=== PATIENT | male | born 1980 | race Two or more races ===

== ENCOUNTER 2017-09-21 11:47 | Emergency (ER) | payer OTHER | END 2017-09-21 13:05 | disposition home or self-care (01) | LOC: ER 11:47 | DX: S46.812A Strain of other muscles, fascia and tendons at shoulder and upper arm level, left arm, initial encounter (principal); F12.10 Cannabis abuse, uncomplicated; F17.210 Nicotine dependence, cigarettes, uncomplicated; X50.9XXA Other and unspecified overexertion or strenuous movements or postures, initial encounter; Y93.89 Activity, other specified; Y99.8 Other external cause status; Y92.89 Other specified places as the place of occurrence of the external cause | CPT/HCPCS: 73000; 73030; 99284 ==

== ENCOUNTER 2019-03-01 10:43 | Emergency (ER) | payer BC, OTHER ==
[~2019-03-01] VITALS: Ht 167.6 cm; Wt 85.7 kg
[~2019-03-01 10:43] MED LIST: CYCL10TA2 PO; DOXY100C2 PO; METH4TAB2 PO; NAPR500T8 PO
[2019-03-01] MEDS ORDERED: KETOROLAC 30 MG/ML VIAL. IV ONE (11:00)
[2019-03-01 11:22] LABS: BASO # 0.1 x10^3/uL (0.0-0.2); BASO % 1 % (0-3); EOS # 0.4 x10^3/uL (0.0-0.7); EOS % 6 % (0-3); HEMATOCRIT 46.9 % (39.0-53.0); HEMOGLOBIN 16.5 g/dL (13.0-17.5); LYMPH # 3.2 x10^3/uL (1.0-4.8); LYMPH % 40 % (24-48); MEAN CORPUSCULAR HEMOGLOBIN 32 pg (25-35); MEAN CORPUSCULAR HGB CONC 35 g/dL (31-37); MEAN CORPUSCULAR VOLUME 91 fL (79-100); MONO # 0.4 x10^3/uL (0.0-1.1); MONO % 5 % (0-9); NEUT # 3.9 x10^3/uL (1.8-7.7); NEUT % 48 % (31-73); PLATELET COUNT 276 x10^3/uL (140-400); RED BLOOD COUNT 5.17 x10^6/uL (4.30-5.70); RED CELL DISTRIBUTION WIDTH 13.4 % (11.5-14.5)
--- NOTE | 2019-03-01 11:23 | EKG ---
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
[2019-03-01 11:27] LABS: CALCIUM 9.8 mg/dL (8.5-10.1); GFR 83.2; POTASSIUM 4.2 mmol/L (3.5-5.1)
[2019-03-01 11:33] LABS: ALBUMIN 4.5 g/dL (3.4-5.0); ALBUMIN/GLOBULIN RATIO 1.2 (1.0-1.7); TOTAL BILIRUBIN 0.9 mg/dL (0.2-1.0); TOTAL PROTEIN 8.2 g/dL (6.4-8.2)
[2019-03-01 11:37] LABS: PROTHROMBIN TIME PATIENT 12.6 SEC (11.7-14.0)
[2019-03-01 11:41] LABS: BARBITURATES NEG (NEG); BENZODIAZEPINES NEG (NEG); CANNABINOIDS POS (NEG); COCAINE NEG (NEG); METHADONE NEG (NEG); OPIATES NEG (NEG); PHENCYCLIDINE NEG (NEG)
[2019-03-01 11:42] LABS: AMPHETAMINE/METHAMPHETAMINE NEG (NEG)
[2019-03-01 11:54] VITALS: BP 122/88
[2019-03-01] MEDS ORDERED: NAPR-683 PO (12:03)
--- NOTE | 2019-03-01 12:03 | PHYS DOC ---
Past Medical History Past Medical History: No Pertinent History Past Surgical History: No Surgical History Additional Past Surgical Histo: on head in distant past Smoking: Cigarettes, 1 Pack Per Day Alcohol Use: Occasionally Drug Use: Marijuana Adult General Chief Complaint Chief Complaint: CHEST WALL PAIN HPI HPI Patient is a 38 year old male who presents with complaining of chest pain. Patient complaining of left upper chest pain since yesterday as a constant squeezing pain without radiation. Patient denies shortness of breath, dizziness, palpitation, nausea and vomiting, fever and chills, cough. Patient states the pain getting worse with movement. Patient rated his pain 8/10 and states he took Xanax last night belonged to somebody else without change of his pain. Patient states he had history of the same pain previously and diagnosed with muscle pain. Review of Systems Review of Systems Constitutional: Denies fever or chills [] Eyes: Denies change in visual acuity, redness, or eye pain [] HENT: Denies nasal congestion or sore throat [] Respiratory: Denies cough or shortness of breath [] Cardiovascular: No additional information not addressed in HPI [] GI: Denies abdominal pain, nausea, vomiting, bloody stools or diarrhea [] : Denies dysuria or hematuria [] Musculoskeletal: Denies back pain or joint pain [] Integument: Denies rash or skin lesions [] Neurologic: Denies headache, focal weakness or sensory changes [] Endocrine: Denies polyuria or polydipsia [] All other systems were reviewed and found to be within normal limits, except as documented in this note. Current Medications Current Medications Current Medications Medications (Trade) Dose Ordered Sig/[facility] Start Time Stop Time Status Last Admin Dose Admin Ketorolac Tromethamine (Toradol 30mg Vial) 30 mg 1X ONCE 03/01/19 11:00 03/01/19 11:07 DC 03/01/19 11:20 30 MG Allergies Allergies Allergies Coded Allergies Type Severity Reaction Last Updated Verified No Known Drug Allergies 07/01/16 No Physical Exam Physical Exam Constitutional: Well developed, well nourished, mild distress, non-toxic appearance. [] HENT: Normocephalic, atraumatic. Eyes: PERRLA, EOMI, conjunctiva normal, no discharge. [] Neck: Normal range of motion, no tenderness, supple, no stridor. [] Cardiovascular:Heart rate regular rhythm, no murmur [] Lungs & Thorax: Bilateral breath sounds clear to auscultation, reproducible left upper chest pain [] Abdomen: Bowel sounds normal, soft, no tenderness, no masses, no pulsatile masses. [] Skin: Warm, dry, no erythema, no rash. [] Back: No tenderness, no CVA tenderness. [] Extremities: No tenderness, no cyanosis, no clubbing, ROM intact, no edema. [] Neurologic: Alert and oriented X 3, no focal deficits noted. [] Psychologic: Affect normal, judgement normal, mood normal. [] Current Patient Data Vital Signs Vital Signs Date Time Temp Pulse Resp B/P (MAP) Pulse Ox O2 Delivery O2 Flow Rate FiO2 03/01/19 10:48 98.0 55 16 148/99 (115) 98 Room Air 98.0 Lab Values Laboratory Tests Test 03/01/19 11:03 03/01/19 11:20 White Blood Count 8.0 x10^3/uL (4.0-11.0) Red Blood Count 5.17 x10^6/uL (4.30-5.70) Hemoglobin 16.5 g/dL (13.0-17.5) Hematocrit 46.9 % (39.0-53.0) Mean Corpuscular Volume 91 fL (79-100) Mean Corpuscular Hemoglobin 32 pg (25-35) Mean Corpuscular Hemoglobin Concent 35 g/dL (31-37) Red Cell Distribution Width 13.4 % (11.5-14.5) Platelet Count 276 x10^3/uL (140-400) Neutrophils (%) (Auto) 48 % (31-73) Lymphocytes (%) (Auto) 40 % (24-48) Monocytes (%) (Auto) 5 % (0-9) Eosinophils (%) (Auto) 6 % (0-3) H Basophils (%) (Auto) 1 % (0-3) Neutrophils # (Auto) 3.9 x10^3/uL (1.8-7.7) Lymphocytes # (Auto) 3.2 x10^3/uL (1.0-4.8) Monocytes # (Auto) 0.4 x10^3/uL (0.0-1.1) Eosinophils # (Auto) 0.4 x10^3/uL (0.0-0.7) Basophils # (Auto) 0.1 x10^3/uL (0.0-0.2) Prothrombin Time 12.6 SEC (11.7-14.0) Prothrombin Time INR 1.0 (0.8-1.1) Sodium Level 140 mmol/L (136-145) Potassium Level 4.2 mmol/L (3.5-5.1) Chloride Level 103 mmol/L (98-107) Carbon Dioxide Level 27 mmol/L (21-32) Anion Gap 10 (6-14) Blood Urea Nitrogen 17 mg/dL (8-26) Creatinine 1.0 mg/dL (0.7-1.3) Estimated GFR (Cockcroft-Gault) 83.2 BUN/Creatinine Ratio 17 (6-20) Glucose Level 133 mg/dL (70-99) H Calcium Level 9.8 mg/dL (8.5-10.1) Total Bilirubin 0.9 mg/dL (0.2-1.0) Aspartate Amino Transferase (AST) 20 U/L (15-37) Alanine Aminotransferase (ALT) 34 U/L (16-63) Alkaline Phosphatase 68 U/L (46-116) Creatine Kinase 353 U/L (39-308) H Troponin I Quantitative < 0.017 ng/mL (0.000-0.055) QY-Kfi-R-Type Natriuretic Peptide 8 pg/mL (0-124) Total Protein 8.2 g/dL (6.4-8.2) Albumin 4.5 g/dL (3.4-5.0) Albumin/Globulin Ratio 1.2 (1.0-1.7) Lipase 174 U/L (73-393) Ethyl Alcohol Level < 10 mg/dL (0-10) Urine Opiates Screen Neg (NEG) Urine Methadone Screen Neg (NEG) Urine Barbiturates Neg (NEG) Urine Phencyclidine Screen Neg (NEG) Urine Amphetamine/Methamphetamine Neg (NEG) Urine Benzodiazepines Screen Neg (NEG) Urine Cocaine Screen Neg (NEG) Urine Cannabinoids Screen Pos (NEG) Urine Ethyl Alcohol Neg (NEG) Laboratory Tests 03/01/19 11:03 Laboratory Tests 03/01/19 11:03 EKG EKG EKG interpreted by me. EKG at 1040 showed normal sinus rhythm at rate of 85, left collins axis, no acute ST and T-wave abnormalities. Abdomen Radiology/Procedures Radiology/Procedures [] Course & Med Decision Making Course & Med Decision Making Pertinent Labs reviewed. (See chart for details) Evaluation of patient in ER showed 38-year-old male patient complaining of left upper chest pain that getting force with movement. Patient had heart score of 2 and his pain resolved with Toradol. Labs was unremarkable. Patient was advised to quit smoking and increase fluid intake. I've spoken with the patient and/or caregivers. I've explained the patient's condition, diagnosis and treatment plan based on information available to me at this time. I've answered the patient's and/or caregivers questions and addressed any concerns. The patient and/or caregivers have a good understanding the patient's diagnosis, condition and treatment plan as can be expected at this point. Vital signs have been stabilized. The patient's condition is stable for discharge from the emergency department. The patient will pursue further outpatient evaluation with her primary care provider or other designated consulting physician as outlined in the discharge instructions. Patient and/or caregivers are agreeable to this plan of care and follow-up instructions have been explained in detail. The patient and/or caregivers have received these instructions in written format and expressed understanding of these discharge instructions. The patient and her caregivers are aware that if any significant change in condition or worsening of symptoms should prompt him to immediately return to this of the closest emergency department. If an emergent department is not readily available I would encourage him to call 911. Stevenon Disclaimer Dragon Disclaimer This electronic medical record was generated, in whole or in part, using a voice recognition dictation system. Departure Departure Impression: Primary Impression: Musculoskeletal chest pain Additional Impressions: Musculoskeletal strain Tobacco abuse Tobacco abuse counseling Disposition: HOME, SELF-CARE (at 1201) Condition: IMPROVED Referrals: NO PCP (PCP) Patient Instructions: Chest Wall Pain, Muscle Strain, Smoking Cessation, Tips For Success Additional Instructions: Drink plenty of liquids Follow-up with your primary care physician in 3-5 days Return to ER if not getting better Apply ice on the affected area Scripts Naproxen (NAPROSYN) 500 Mg Tablet 1 TAB PO BID for pain, #20 TAB Prov: CASTILLO PETERS MD 03/01/19 The HEART Score for CP Pts HEART Score for Chest Pain: HEART Score for Chest Pain Response (Comments) Value History Slighlty/Non-Suspicious 0 ECG Nonspecific Repolarizatio 1 Age < 45 0 Risk Factors 1 or 2 Risk Factors 1 Troponin < Normal Limit 0 Total 2 Risk Factors: Risk Factors: DM, Current or recent (<one month) smoker, HTN, HLP, family history of CAD, obesity. Risk Scores: Score 0 - 3: 2.5% MACE over next 6 weeks - Discharge Home Score 4 - 6: 20.3% MACE over next 6 weeks - Admit for Clinical Observation Score 7 - 10: 72.7% MACE over next 6 weeks - Early Invasive Strategies Problem Qualifiers CASTILLO PETERS MD Mar 01, 2019 12:03
== END 2019-03-01 12:14 | disposition home or self-care (01) ==
LOC: ER 10:43
DX: S29.011A Strain of muscle and tendon of front wall of thorax, initial encounter (principal); F17.210 Nicotine dependence, cigarettes, uncomplicated; Z71.6 Tobacco abuse counseling; X58.XXXA Exposure to other specified factors, initial encounter; Y93.89 Activity, other specified; Y92.89 Other specified places as the place of occurrence of the external cause; Y99.8 Other external cause status
CPT/HCPCS: 36415; 80053; 80307; 82550; 83690; 83880; 84484; 85025; 85610; 93005; 96374; 99285; G0480; J1885

== ENCOUNTER 2019-11-17 15:48 | Emergency (ER) | payer BC ==
[~2019-11-17] VITALS: Ht 167.6 cm; Wt 81.8 kg
[~2019-11-17 15:48] MED LIST changes: +NAPR-683 PO
--- NOTE | 2019-11-17 16:29 | PHYS DOC ---
Past Medical History Past Medical History: No Pertinent History Past Surgical History: No Surgical History Additional Past Surgical Histo: on head in distant past Smoking Status: Current Some Day Smoker Alcohol Use: Occasionally Drug Use: Marijuana General Adult EDM: Chief Complaint: ABDOMINAL PAIN HPI: HPI: This is a pleasant 39-year-old male presents emergency department today with right lower abdominal pain. it has been present for about 5 days. His pain comes and goes it is a sharp shooting pain that is nonradiating. He denies vomiting or diarrhea. He denies fevers or chills. Review of systems negative for chest pain shortness of breath fevers headache or diarrhea. All other review of systems negative. ED course: 39-year-old male presenting with right lower quadrant abdominal pain. Patient is afebrile with normal heart rate. Mildly high blood pressure coming in. CBC is unremarkable. Chemistry panel unremarkable. Patient had a reaction to iodine here in the emergency department. He has a rash without any difficulty breathing or tongue swelling. Patient was given Benadryl. We will give the patient IV corticosteroids. We will monitor the pt in the ED and repeat trop now. Pt signed out to dr. shi at 621pm. PPE Statement: During the patient's care I used an level 3 mask, gloves, and face shield. Heart Score: Risk Factors: Risk Factors: DM, Current or recent (<one month) smoker, HTN, HLP, family history of CAD, obesity. Risk Scores: Score 0 - 3: 2.5% MACE over next 6 weeks - Discharge Home Score 4 - 6: 20.3% MACE over next 6 weeks - Admit for Clinical Observation Score 7 - 10: 72.7% MACE over next 6 weeks - Early Invasive Strategies Allergies: Allergies: Allergies Coded Allergies Type Severity Reaction Last Updated Verified No Known Drug Allergies 07/01/16 No Physical Exam: PE: Constitutional: Well developed, well nourished, no acute distress, non-toxic appearance. [] HENT: Normocephalic, atraumatic, bilateral external ears normal, oropharynx moist, no oral exudates, nose normal. [] Eyes: PERRLA, EOMI, conjunctiva normal, no discharge. [] Neck: Normal range of motion, no tenderness, supple, no stridor. [] Cardiovascular:Heart rate regular rhythm, no murmur [] Lungs & Thorax: Bilateral breath sounds clear to auscultation [] Abdomen: Bowel sounds normal, soft, ttp in the rlq neg, murphys sign, no masses, no pulsatile masses. [] Skin: Warm, dry, no erythema, no rash. [] Back: No tenderness, no CVA tenderness. [] Extremities: No tenderness, no cyanosis, no clubbing, ROM intact, no edema. [] Neurologic: Alert and oriented X 3, normal motor function, normal sensory function, no focal deficits noted. [] Psychologic: Affect normal, judgement normal, mood normal. [] EKG: EKG: [] Radiology/Procedures: Radiology/Procedures: [] Course & Med Decision Making: Course & Med Decision Making Pertinent Labs and Imaging studies reviewed. (See chart for details) [] Dragon Disclaimer: Dragon Disclaimer: This electronic medical record was generated, in whole or in part, using a voice recognition dictation system. Departure Departure Impression: Primary Impression: Abdominal pain Additional Impression: Allergic reaction Referrals: NO PCP (PCP) Justicifation of Admission Dx: Justifications for Admission: Justification of Admission Dx: N/A ROMAN AMAYA MD Nov 17, 2019 16:29
[2019-11-17 16:31] LABS: BILIRUBIN,URINE NEGATIVE (NEG); CLARITY,URINE CLEAR; COLOR,URINE YELLOW; NITRITE,URINE NEGATIVE (NEG); PROTEIN,URINE NEGATIVE (NEG-TRACE)
[2019-11-17 16:37] LABS: BACTERIA,URINE 0 /HPF (0-FEW); RBC,URINE 0 /HPF (0-2); SQUAMOUS EPITHELIAL CELL,UR FEW /LPF; WBC,URINE 20-40 /HPF (0-4)
[2019-11-17 16:49] LABS: BASO # 0.1 x10^3/uL (0.0-0.2); BASO % 1 % (0-3); EOS # 0.5 x10^3/uL (0.0-0.7); EOS % 7 % (0-3); HEMATOCRIT 40.9 % (39.0-53.0); HEMOGLOBIN 14.3 g/dL (13.0-17.5); LYMPH # 2.8 x10^3/uL (1.0-4.8); LYMPH % 36 % (24-48); MEAN CORPUSCULAR HEMOGLOBIN 32 pg (25-35); MEAN CORPUSCULAR HGB CONC 35 g/dL (31-37); MEAN CORPUSCULAR VOLUME 91 fL (79-100); MONO # 0.4 x10^3/uL (0.0-1.1); MONO % 5 % (0-9); NEUT % 52 % (31-73); PLATELET COUNT 241 x10^3/uL (140-400); RED BLOOD COUNT 4.51 x10^6/uL (4.30-5.70); RED CELL DISTRIBUTION WIDTH 13.1 % (11.5-14.5); WHITE BLOOD COUNT 7.7 x10^3/uL (4.0-11.0)
[2019-11-17 17:00] LABS: CALCIUM 8.4 mg/dL (8.5-10.1); CREATININE 1.2 mg/dL (0.7-1.3); GFR 67.1; POTASSIUM 3.5 mmol/L (3.5-5.1)
[2019-11-17 17:06] LABS: ALBUMIN 3.9 g/dL (3.4-5.0); DIRECT BILIRUBIN 0.1 mg/dL (0.0-0.2); TOTAL BILIRUBIN 0.6 mg/dL (0.2-1.0); TOTAL PROTEIN 7.2 g/dL (6.4-8.2)
[2019-11-17] MEDS ORDERED: CONTRAST GIVEN. MC PRN (17:15)
[2019-11-17] MEDS ORDERED: IOHEXOL 300 MG/ML 100ML VIAL. IV ONE (17:15)
--- NOTE | 2019-11-17 17:49 | RAD ---
Exam: CT of abdomen and pelvis with contrast INDICATION: Abdominal pain TECHNIQUE: Sequential axial images through the abdomen and pelvis obtained following the administration of 75 mL of Omni 300 IV contrast. Sagittal and coronal reformatted images were reconstructed from the axial data and reviewed. Comparisons: None FINDINGS: Heart size is normal. No pericardial effusion. Visualized lung bases are clear. No pleural effusion. Liver, spleen, pancreas, gallbladder and adrenals are unremarkable. Kidneys demonstrate symmetric enhancement. No perinephric inflammation or hydronephrosis. No renal or ureteral calculi are identified. Bladder is partially distended and appears thin-walled. Prostate is not enlarged. Large and small bowel are unremarkable. No free abdominal air or fluid. No obstruction. Abdominal aorta has a normal course and caliber. Abdominal vasculature is patent. No enlarged abdominal lymph nodes are identified. No suspicious osseous lesions or acute fractures. IMPRESSION: No acute process identified within the abdomen or pelvis. Exposure: One or more of the following in the visualized dose reduction techniques were utilized for this examination: 1. Automated exposure control 2. Adjustment of the MA and/or KV according to patient size 3. Use of iterative of reconstructive technique Electronically signed by: Daniel Shah MD (11/17/2019 5:46 PM) [id number]
[2019-11-17] MEDS ORDERED: diphenhydrAMINE HCL 25 MG CAPSULE PO ONE (18:00)
[2019-11-17] MEDS ORDERED: methylPREDNISolone SOD SUCC PF 125 MG/2 ML VIAL. IV ONE (18:30)
[2019-11-17 19:34] VITALS: BP 95/51
[2019-11-17] MEDS ORDERED: ONDA4TAB12 PO (19:41)
[2019-11-17] MEDS ORDERED: HYDR-3164 PO (19:41)
--- NOTE | 2019-11-18 04:26 | EKG ---
[facility] [address] [place] [address] Test Date: 2019-11-17 Test Time: 16:51:36 Pat Name: PARKER SPRAGUE Department: Room: Gender: M Hard Tile Setter: : 1980 Requested By: ROMAN AMAYA Order Number: [id number] Reading MD: Measurements Intervals [place] Rate: 51 P: 26 [place]: 162 QRS: -21 QRSD: 84 T: -13 QT: 418 QTc: 387 Interpretive Statements SINUS RHYTHM LEFTWARD AXIS R-S TRANSITION ZONE IN V LEADS DISPLACED TO THE RIGHT QRS(T) CONTOUR ABNORMALITY CONSIDER INFERIOR INFARCT POSSIBLY ABNORMAL ECG RI6.02 No previous ECG available for comparison
== END 2019-11-17 20:03 | disposition home or self-care (01) ==
LOC: ER 15:48
DX: T78.49XA Other allergy, initial encounter (principal); R10.31 Right lower quadrant pain; F17.200 Nicotine dependence, unspecified, uncomplicated; F12.90 Cannabis use, unspecified, uncomplicated; Z98.890 Other specified postprocedural states; Y92.89 Other specified places as the place of occurrence of the external cause
CPT/HCPCS: 36415; 74177; 80048; 80076; 81001; 83690; 83880; 84484; 85025; 87086; 93005; 96374; 99285; J2930; Q9967; Q0163

== ENCOUNTER 2021-09-21 01:49 | Emergency (ER) | payer BC ==
[~2021-09-21] VITALS: Ht 193 cm; Wt 90.0 kg
[~2021-09-21 01:49] MED LIST changes: +CYCL10TA19 PO; -CYCL10TA2 PO; -DOXY100C2 PO; +DOXY100C3 PO; +HYDR-3164 PO; +ONDA4TAB12 PO
--- NOTE | 2021-09-21 02:28 | PHYS DOC ---
Past Medical History Past Medical History: No Pertinent History Past Surgical History: Other Additional Past Surgical Histo: RIGHT LEG REPAIR Smoking Status: Current Some Day Smoker Alcohol Use: Heavy Drug Use: Marijuana General Adult EDM: Chief Complaint: LOWER EXT PAIN HPI: HPI: Patient is a 41 year old male who present to ER for evaluation of right knee pain. Patient said about 2 days ago he was walking, he felt he twisted his right knee, patient has been having pain on the top of his right knee since. Patient denies any leg pain or leg swelling. Patient denies any chest pain or any trouble breathing. Patient denies any cough or fever. Review of Systems: Review of Systems: Constitutional: Denies fever or chills. [] Eyes: Denies change in visual acuity. [] HENT: Denies nasal congestion or sore throat. [] Respiratory: Denies cough or shortness of breath. [] Cardiovascular: Denies chest pain or edema. [] GI: Denies abdominal pain, nausea, vomiting, bloody stools or diarrhea. [] : Denies dysuria. [] Musculoskeletal: Denies back pain, positive for right knee pain Integument: Denies rash. [] Neurologic: Denies headache, focal weakness or sensory changes. [] Endocrine: Denies polyuria or polydipsia. [] Lymphatic: Denies swollen glands. [] Psychiatric: Denies depression or anxiety. [] Heart Score: C/O Chest Pain: N/A Risk Factors: Risk Factors: DM, Current or recent (<one month) smoker, HTN, HLP, family history of CAD, obesity. Risk Scores: Score 0 - 3: 2.5% MACE over next 6 weeks - Discharge Home Score 4 - 6: 20.3% MACE over next 6 weeks - Admit for Clinical Observation Score 7 - 10: 72.7% MACE over next 6 weeks - Early Invasive Strategies Current Medications: Current Medications Medications (Trade) Dose Ordered Sig/[facility] Start Time Stop Time Status Last Admin Dose Admin Ketorolac Tromethamine (Toradol Im) 60 mg 1X ONCE 09/21/21 02:30 4 02:31 Methylprednisolone Sodium Succinate (SOLU-Medrol 125MG VIAL) 125 mg 1X ONCE 09/21/21 02:30 09/21/21 02:31 Allergies: Allergies: Allergies Coded Allergies Type Severity Reaction Last Updated Verified Iodinated Contrast Media Adverse Reaction Intermediate rash/itching 11/17/19 Yes Physical Exam: PE: Constitutional: Well developed, well nourished, no acute distress, non-toxic appearance. [] HENT: Normocephalic, atraumatic, bilateral external ears normal, oropharynx moist, no oral exudates, nose normal. [] Eyes: PERRLA, EOMI, conjunctiva normal, no discharge. [] Neck: Normal range of motion, no tenderness, supple, no stridor. [] Cardiovascular:Heart rate regular rhythm, no murmur [] Lungs & Thorax: Bilateral breath sounds clear to auscultation [] Abdomen: Bowel sounds normal, soft, no tenderness, no masses, no pulsatile masses. [] Skin: Warm, dry, no erythema, no rash. [] Back: No tenderness, no CVA tenderness. [] Extremities: The bursa area of the right knee is tender, warm to the touch, swollen. Knee joint is stable. Neurologic: Alert and oriented X 3, normal motor function, normal sensory function, no focal deficits noted. [] Psychologic: Affect normal, judgement normal, mood normal. [] Current Patient Data: Labs: Current Medications Medications (Trade) Dose Ordered Sig/[facility] Route PRN Reason Start Time Stop Time Status Last Admin Dose Admin Methylprednisolone Sodium Succinate (SOLU-Medrol 125MG VIAL) 125 mg 1X ONCE IM 09/21/21 02:30 09/21/21 02:31 DC 09/21/21 03:12 Ketorolac Tromethamine (Toradol Im) 60 mg 1X ONCE IM 09/21/21 02:30 09/21/21 02:31 DC 09/21/21 03:15 Vital Signs: Vital Signs Date Time Temp Pulse Resp B/P (MAP) Pulse Ox O2 Delivery O2 Flow Rate FiO2 09/21/21 02:00 98.2 69 18 134/71 (92) 97 Room Air 98.2 EKG: EKG: [] Radiology/Procedures: Radiology/Procedures: [] Course & Med Decision Making: Course & Med Decision Making Pertinent Labs and Imaging studies reviewed. (See chart for details) Patient is a 41-year-old male present to ER for evaluation of anterior upper right knee pain and swelling for 2 days. X-ray show some effusion in the prepatellar bursa area consistent with bursitis. Patient was given steroid injection and Toradol in ER, Devon wrap was applied around the right knee, patient will be discharged home with steroid and anti-inflammatory medication and antibiotic. Patient will be follow-up with orthopedic surgeon for outpatient reevaluation. Jenise Disclaimer: Jenise Disclaimer: This electronic medical record was generated, in whole or in part, using a voice recognition dictation system. Departure Departure Impression: Primary Impression: Prepatellar bursitis, right knee Disposition: HOME / SELF CARE / HOMELESS Condition: IMPROVED Referrals: RENETTA BEE Jr. DO PLEASE FOLLOW UP WITH THIS ORTHOPEDIC PHYSICIAN FOR OUTPATIENT EVALUATION NEXT WEEK Patient Instructions: Prepatellar Bursitis with [facility] Additional Instructions: Thank you for visiting our Emergency Department. We appreciate you trusting us with your care. If any additional problems come up don't hesitate to return to visit us. Please follow up with your primary care provider so they can plan additional care if needed and know about the problem that you had. If symptoms worsen come back to the Emergency Department. Any concerning symptoms that start such as chest pain, shortness of air, weakness or numbness on one side of the body, running high fevers or any other concerning symptoms return to the ER. Scripts Ibuprofen (IBUPROFEN) 800 Mg Tablet 800 MG PO PRN Q8HRS PRN for INFLAMMATION, #30 TAB Prov: CHARMAINE SEE DO 09/21/21 Prednisone (PREDNISONE) 20 Mg Tablet 2 TAB PO DAILY for 7 Days, #14 TAB Prov: CHARMAINE SEE DO 09/21/21 Cephalexin (CEPHALEXIN) 500 Mg Tablet 1 TAB PO QID, #40 TAB Prov: CHARMAINE SEE DO 09/21/21 CHARMAINE SEE DO Sep 21, 2021 02:28
[2021-09-21] MEDS ORDERED: methylPREDNISolone SOD SUCC PF 125 MG/2 ML VIAL. IM ONE (02:30)
[2021-09-21] MEDS ORDERED: KETOROLAC 60 MG/2 ML VIAL. IM ONE (02:30)
[2021-09-21 03:53] VITALS: BP 146/71
[2021-09-21] MEDS ORDERED: CEPH500T PO (04:00)
[2021-09-21] MEDS ORDERED: PRED20TA PO (04:00)
[2021-09-21] MEDS ORDERED: IBUP-1060 PO (04:00)
--- NOTE | 2021-09-21 05:20 | RAD ---
Study: XR KNEE 3 VIEWS_RT Indication: Right knee pain. Comparison: None. Findings: Anatomic alignment is maintained. Normal femorotibial compartment joint space height. No acute fractu re. No large knee joint effusion. Impression: No acute osseous abnormality. Electronically signed by: LARRY BUSTAMANTE MD (09/21/2021 5:17 AM) [facility]
== END 2021-09-21 04:10 | disposition home or self-care (01) ==
LOC: ER 01:49
DX: M70.41 Prepatellar bursitis, right knee (principal); Y93.89 Activity, other specified; F17.200 Nicotine dependence, unspecified, uncomplicated; Z91.041 Radiographic dye allergy status
CPT/HCPCS: 73562; 96372; 99285; J1885; J2930